=== PATIENT | male | born 1960 | race African-American/Black ===

== ENCOUNTER 2017-02-24 20:46 | Emergency (ER) | payer OTHER ==
[~2017-02-24] VITALS: Ht 185.4 cm; Wt 93.4 kg
[2017-02-24] MEDS ORDERED: ONDA4TAB10 SL (22:03)
[2017-02-24] MEDS ORDERED: MORP15TA PO (22:03)
--- NOTE | 2017-02-24 22:03 | PHYS DOC ---
Adult General Chief Complaint Chief Complaint: BLOOD IN URINE HPI HPI 48-year-old male presenting to the emergency department today after having left groin pain after lifting a heavy object. He reports lifting commonly for his job and normally doesn't have problems however a few days ago he was lifting something heavy when he suddenly had groin pain. He denies there being much swelling in his groin. Over the past 2 days he has been tolerating the pain, however tonight he began having hematuria and so he presents. His pain is sharp moderate nonradiating and without alleviating factors. It is associated with hematuria. Review of systems is negative for chest pain shortness of breath nausea vomiting abdominal pain fevers chills. All other review of systems is negative unless otherwise noted in history of present illness. Review of Systems Review of Systems SEE ABOVE. Current Medications Current Medications Current Medications Medications (Trade) Dose Ordered Sig/Rayo Start Time Stop Time Status Last Admin Dose Admin Fentanyl Citrate (Fentanyl 2ml Vial) 25 mcg 1X ONCE 02/24/17 22:30 02/24/17 22:31 DC 02/24/17 22:37 25 MCG Ondansetron HCl (Zofran) 4 mg 1X ONCE 02/24/17 22:30 02/24/17 22:31 DC 02/24/17 22:37 4 MG Sodium Chloride 1,000 ml @ 1,000 mls/hr Q1H 02/24/17 22:30 02/24/17 23:29 DC 02/24/17 22:38 1,000 MLS/HR Allergies Allergies Allergies Coded Allergies Type Severity Reaction Last Updated Verified No Known Drug Allergies 02/24/17 No Physical Exam Physical Exam Constitutional: Well developed, well nourished, no acute distress, non-toxic appearance. HENT: Normocephalic, atraumatic, bilateral external ears normal, oropharynx moist, no oral exudates, nose normal. [] Eyes: PERRLA, EOMI, conjunctiva normal, no discharge. Neck: Normal range of motion, no tenderness, supple, no stridor. [] Cardiovascular:Heart rate regular rhythm, no murmur Lungs & Thorax: Bilateral breath sounds clear to auscultation [] Abdomen: Soft nontender abdomen without rebound tenderness or guarding present. Negative McBurneys point. Negative Campbell sign. No ecchymosis present. exam: Normal penis and testicles. There is no erythema of the scrotal sac. Cremasteric reflex is intact. There is mild swelling with Valsalva maneuver over the left groin in the inguinal canal. Skin: Warm, dry, no erythema, no rash. [] Back: No tenderness, no CVA tenderness. Extremities: No tenderness, no cyanosis, no clubbing, ROM intact, no edema. [] Neurologic: Alert and oriented X 3, normal motor function, normal sensory function, no focal deficits noted. Psychologic: Affect normal, judgement normal, mood normal. [] Current Patient Data Vital Signs Vital Signs Date Time Temp Pulse Resp B/P (MAP) Pulse Ox O2 Delivery O2 Flow Rate FiO2 02/24/17 23:20 Room Air 02/24/17 22:46 97.9 86 17 133/84 (100) 98 97.9 Lab Values Laboratory Tests Test 02/24/17 21:30 02/24/17 22:20 Urine Collection Type Unknown Urine Color Emily Urine Clarity Cloudy Urine pH 6.0 Urine Specific [place] 1.020 Urine Protein 100 mg/dL (NEG-TRACE) Urine Glucose (UA) Negative mg/dL (NEG) Urine Ketones (Stick) Negative mg/dL (NEG) Urine Blood Large (NEG) Urine Nitrite Positive (NEG) Urine Bilirubin Negative (NEG) Urine Urobilinogen Dipstick 1.0 mg/dL (0.2 mg/dL) Urine Leukocyte Esterase Large (NEG) Urine RBC Tntc /HPF (0-2) Urine WBC Tntc /HPF (0-4) Urine Squamous Epithelial Cells Occ /LPF Urine Bacteria Many /HPF (0-FEW) White Blood Count 14.1 x10^3/uL (4.0-11.0) H Red Blood Count 4.45 x10^6/uL (4.30-5.70) Hemoglobin 12.8 g/dL (13.0-17.5) L Hematocrit 37.5 % (39.0-53.0) L Mean Corpuscular Volume 84 fL (79-100) Mean Corpuscular Hemoglobin 29 pg (25-35) Mean Corpuscular Hemoglobin Concent 34 g/dL (31-37) Red Cell Distribution Width 13.9 % (11.5-14.5) Platelet Count 197 x10^3/uL (140-400) Neutrophils (%) (Auto) 81 % (31-73) H Lymphocytes (%) (Auto) 14 % (24-48) L Monocytes (%) (Auto) 4 % (0-9) Eosinophils (%) (Auto) 1 % (0-3) Basophils (%) (Auto) 0 % (0-3) Neutrophils # (Auto) 11.4 x10^3uL (1.8-7.7) H Lymphocytes # (Auto) 2.0 x10^3/uL (1.0-4.8) Monocytes # (Auto) 0.6 x10^3/uL (0.0-1.1) Eosinophils # (Auto) 0.1 x10^3/uL (0.0-0.7) Basophils # (Auto) 0.0 x10^3/uL (0.0-0.2) Sodium Level 141 mmol/L (136-145) Potassium Level 4.3 mmol/L (3.5-5.1) Chloride Level 103 mmol/L (98-107) Carbon Dioxide Level 29 mmol/L (21-32) Anion Gap 9 (6-14) Blood Urea Nitrogen 15 mg/dL (8-26) Creatinine 1.1 mg/dL (0.7-1.3) Estimated GFR (Cockcroft-Gault) 83.2 BUN/Creatinine Ratio 14 (6-20) Glucose Level 87 mg/dL (70-99) Calcium Level 9.1 mg/dL (8.5-10.1) Total Bilirubin 0.8 mg/dL (0.2-1.0) Aspartate Amino Transferase (AST) 37 U/L (15-37) Alanine Aminotransferase (ALT) 40 U/L (16-63) Alkaline Phosphatase 54 U/L (46-116) Total Protein 7.1 g/dL (6.4-8.2) Albumin 3.5 g/dL (3.4-5.0) Albumin/Globulin Ratio 1.0 (1.0-1.7) Lipase 112 U/L (73-393) Laboratory Tests 02/24/17 22:20 Laboratory Tests 02/24/17 22:20 EKG EKG [] Radiology/Procedures Radiology/Procedures [] Course & Med Decision Making Course & Med Decision Making Pertinent Labs and Imaging studies reviewed. (See chart for details) [] 56-year-old male presenting to the emergency department today with left groin pain after lifting heavy object. Vital signs. Pertinent physical exam findings showed that the patient had mild swelling with Valsalva maneuver suggestive of hernia in the left inguinal canal. Blood work obtained. CT the abdomen obtained. Urinalysis strongly suggestive of urinary tract infection. CT abdomen pelvis shows no evidence of hernia. The patient was given fluids along with pain and nausea medications. On reexamination the patient improved significant. The patient was then discharged home in stable condition to follow up with their primary care physician over the next 2-3 days. They were to return if their symptoms worsened or if they were concerned for any reason. Face -to-face discharge instructions and return precautions were given. Patient's questions were answered to their satisfaction. Patient is comfortable plan. Dragon Disclaimer Dragon Disclaimer This electronic medical record was generated, in whole or in part, using a voice recognition dictation system. Departure Departure Impression: Primary Impression: Inguinal hernia Additional Impression: UTI (urinary tract infection) Disposition: 01 HOME, SELF-CARE Condition: STABLE Referrals: FLACO SHAH MD (PCP) MULU GILLESPIE MD Patient Instructions: Hernia Additional Instructions: Thank you for allowing us to participate in your care today. Followup with your primary care physician in 3 days if your symptoms do not improve. If you do not have a primary care provider you can ask for a list of our primary care providers. Return to the emergency department you have any new or concerning findings. This should be evaluated by the primary care physician and any necessary consulting services for continued management within a few days after discharge. Return to emergency room if you have any new or concerning symptoms including but not limited to fever, chills, nausea, vomiting, intractable pain, any new rashes, chest pain, shortness of air, uncontrolled bleeding, difficulty breathing, and/or vision loss. You may have been prescribed medication that can change in your level of thinking and ability to operate machinery. These medications include hydrocodone and Ativan. Also, Benadryl has been known to do this as well. Be sure to check with your pharmacist and ask if the medications you've prescribed can affect your level of consciousness. I recommend not operating heavy machinery or driving while on medication such as these. Scripts Sulfamethoxazole/Trimethoprim (BACTRIM DS TABLET) 1 Each Tablet 1 TAB PO BID, #14 TAB Prov: BREANNA SAENZ MD 02/24/17 Ondansetron (ZOFRAN ODT) 4 Mg Tab.rapdis 1 TAB SL PRN Q8HRS Y for NAUSEA, #6 TAB Prov: BREANNA SAENZ MD 02/24/17 Morphine Sulfate (MORPHINE SULFATE) 15 Mg Tablet 1 TAB PO PRN Q6-8HRS Y for SEVERE PAIN, #8 TAB Prov: BREANNA SAENZ MD 02/24/17 Problem Qualifiers BREANNA SAENZ MD February 24, 2017 22:03
[2017-02-24 22:22] LABS: BILIRUBIN,URINE NEGATIVE (NEG); GLUCOSE,URINE NEGATIVE (NEG); NITRITE,URINE POSITIVE (NEG); PROTEIN,URINE 100 mg/dL (NEG-TRACE)
[2017-02-24 22:25] LABS: BASO % 0 % (0-3); EOS % 1 % (0-3); HEMATOCRIT 37.5 % (39.0-53.0); HEMOGLOBIN 12.8 g/dL (13.0-17.5); LYMPH % 14 % (24-48); MEAN CORPUSCULAR HEMOGLOBIN 29 pg (25-35); MEAN CORPUSCULAR HGB CONC 34 g/dL (31-37); MEAN CORPUSCULAR VOLUME 84 fL (79-100); MONO % 4 % (0-9); NEUT % 81 % (31-73); PLATELET COUNT 197 x10^3/uL (140-400); RED BLOOD COUNT 4.45 x10^6/uL (4.30-5.70); RED CELL DISTRIBUTION WIDTH 13.9 % (11.5-14.5); WHITE BLOOD COUNT 14.1 x10^3/uL (4.0-11.0)
[2017-02-24 22:30] LABS: BACTERIA,URINE MANY /HPF (0-FEW); RBC,URINE TNTC /HPF (0-2); SQUAMOUS EPITHELIAL CELL,UR OCC /LPF; WBC,URINE TNTC /HPF (0-4)
[2017-02-24] MEDS ORDERED: ONDANSETRON PF 4 MG/2 ML VIAL. IV ONE (22:30)
[2017-02-24] MEDS ORDERED: IV NORMAL SALINE 1000ML BAG 1,000 ML IV SCH (22:30)
[2017-02-24] MEDS ORDERED: fentaNYL PF VIAL 100 MCG/2 ML VIAL IV ONE (22:30)
[2017-02-24] MEDS ORDERED: SULF1TAB24 PO (22:35)
[2017-02-24 22:39] LABS: CALCIUM 9.1 mg/dL (8.5-10.1); CREATININE 1.1 mg/dL (0.7-1.3); GFR 83.2; POTASSIUM 4.3 mmol/L (3.5-5.1)
[2017-02-24 22:44] LABS: ALBUMIN 3.5 g/dL (3.4-5.0); TOTAL BILIRUBIN 0.8 mg/dL (0.2-1.0); TOTAL PROTEIN 7.1 g/dL (6.4-8.2)
[2017-02-24 22:46] VITALS: BP 133/84
--- NOTE | 2017-02-24 23:16 | RAD ---
INDICATION: Abdomen pain. COMPARISON: None TECHNIQUE: Axial CT images obtained through the abdomen and pelvis. Intravenous contrast was not utilized. One or more of the following individualized dose reduction techniques were utilized for this examination: 1. Automated exposure control; 2. Adjustment of the mA and/or kV according to patient size; 3. Use of iterative reconstruction technique. FINDINGS: Abdominal aorta not aneurysmal. Mild atelectasis lung bases. No intrahepatic bile duct dilation. No peripancreatic edema. Spleen unremarkable. No hydronephrosis. No definite evidence of small bowel obstruction. Bladder has some edema adjacent to it. Wall mildly prominent. Colonic diverticulosis. Small fat containing umbilical hernia. No periappendiceal inflammation. Degenerative changes of the spine. IMPRESSION: No hydronephrosis or evidence of bowel obstruction. There is mild prominence of the wall of the urinary bladder with some apparent infiltration of fat adjacent to urinary bladder and seminal vesicles. Could be secondary to inflammation either to the bladder or seminal vesicles from cystitis or inflammation of seminal vesicles. Follow-up could be obtained to ensure that the apparent bladder wall thickening resolves to ensure that there is not a neoplastic cause. Electronically signed by: Rah Abernathy (February 24, 2017 23:15:18)
== END 2017-02-25 00:13 | disposition home or self-care (01) ==
LOC: ER 20:46
DX: K40.90 Unilateral inguinal hernia, without obstruction or gangrene, not specified as recurrent (principal); N39.0 Urinary tract infection, site not specified
CPT/HCPCS: 36415; 74176; 80053; 81001; 83690; 85027; 96361; 96374; 96375; 99285; J2405; J3010; J7030

== ENCOUNTER 2020-12-14 17:17 | Emergency (ER) | payer OTHER ==
[~2020-12-14] VITALS: Ht 185.4 cm; Wt 93.1 kg
[~2020-12-14 17:17] MED LIST: MORP15TA PO; ONDA4TAB10 SL; SULF1TAB24 PO
[2020-12-14] MEDS ORDERED: KETOROLAC 15 MG/ML VIAL. IVP ONE (18:30)
[2020-12-14] MEDS ORDERED: ONDANSETRON PF 4 MG/2 ML VIAL. IVP ONE (18:30)
[2020-12-14] MEDS ORDERED: IV NORMAL SALINE 1000ML BAG 1,000 ML IV ONE (18:30)
[2020-12-14] MEDS ORDERED: FAMOTIDINE 20 MG/2 ML VIAL IVP ONE (18:30)
--- NOTE | 2020-12-14 18:32 | PHYS DOC ---
Past Medical History Past Medical History: Hypertension Additional Past Surgical Histo: dental Smoking Status: Former Smoker Alcohol Use: None Drug Use: None General Adult EDM: Chief Complaint: ABDOMINAL PAIN HPI: HPI: Patient is a 60-year-old male who presents to emergency department with complaints of abdominal pain. He states the pain began gradually 4 days ago and is located in his right lower quadrant and radiates to his groin. He describes the pain as sharp and intermittent. He states that the pain comes on and will go away on its own. He denies any aggravating or alleviating factors. He has taken Tylenol for the pain with no relief he denies any fever, chills, nausea, vomiting, diarrhea, hematuria, or dysuria. He denies any previous abdominal surgeries or any similar pain in the past. Review of Systems: Review of Systems: Constitutional: Denies fever or chills Eyes: Denies redness or eye pain HENT: Denies nasal congestion or sore throat Respiratory: Denies cough or shortness of breath Cardiovascular: Denies chest pain or palpitations GI: Admits right lower quadrant pain; denies nausea or vomiting : Denies dysuria or hematuria Musculoskeletal: Denies back pain or joint pain Integument: Denies rash or skin lesions Neurologic: Denies headache, focal weakness or sensory changes Complete systems were reviewed and found to be within normal limits, except as documented in this note. Heart Score: Risk Factors: Scratch Current Medications: Current Medications Medications (Trade) Dose Ordered Sig/Rayo Start Time Stop Time Status Last Admin Dose Admin Famotidine (Pepcid Vial) 20 mg 1X ONCE 12/14/20 18:30 12/14/20 18:31 Ketorolac Tromethamine (Toradol 15mg Vial) 15 mg 1X ONCE 12/14/20 18:30 12/14/20 18:31 Ondansetron HCl (Zofran) 4 mg 1X ONCE 12/14/20 18:30 12/14/20 18:31 Sodium Chloride 1,000 ml @ 1,000 mls/hr 1X ONCE 12/14/20 18:30 12/14/20 19:29 Allergies: Allergies: Allergies Coded Allergies Type Severity Reaction Last Updated Verified No Known Drug Allergies 02/24/17 No Physical Exam: PE: Constitutional: Well developed, well nourished, no acute distress, non-toxic appearance HENT: Normocephalic, atraumatic Eyes: Conjunctiva normal, no discharge Neck: Normal range of motion, no tenderness, supple Lungs & Thorax: No respiratory distress, equal chest rise and fall Abdomen: Soft, tenderness to palpation in right lower quadrant. No guarding, no rebound tenderness Skin: Warm, dry, no erythema, no rash Back: No tenderness, no CVA tenderness Extremities: No tenderness, ROM intact, no edema Neurologic: Alert and oriented X 3, normal motor function, normal sensory function, no focal deficits noted Psychologic: Affect normal, judgment normal Current Patient Data: Vital Signs: Vital Signs Date Time Temp Pulse Resp B/P (MAP) Pulse Ox O2 Delivery O2 Flow Rate FiO2 12/14/20 17:49 98.6 80 26 151/79 (103) 97 Room Air 98.6 EKG: EKG: [] Radiology/Procedures: Radiology/Procedures: PROCEDURE: CT ABDOMEN PELVIS WO CONTRAST Exam: CT of abdomen and pelvis without contrast INDICATION: Right-sided pain, evaluate for ureteral calculus TECHNIQUE: Sequential axial images through the abdomen and pelvis obtained without IV contrast. Sagittal and coronal reformatted images were reconstructed from the axial data and reviewed. Comparisons: 02/24/2017 FINDINGS: Heart size is normal. No pericardial strandy opacities at dependent portion l ungs likely representing atelectasis. No pleural effusion Evaluation of the solid organs is limited secondary to noncontrast technique. Liver, spleen, pancreas, gallbladder and adrenals are unremarkable. No perinephric inflammation or hydronephrosis. No renal or ureteral calculi are identified. Bladder is partially distended and appears thin-walled. Prostate is not enlarged. There is fat stranding and edema surrounding the sigmoid colon with wall thickening and diverticulosis. Remainder large and small bowel are unremarkable. Appendix is normal. No free intra-abdominal air or fluid. No obstruction. Abdominal aorta has a normal course and caliber. No enlarged intra-abdominal lymph nodes are identified. No suspicious osseous lesions or acute fractures. IMPRESSION: Stranding and edema surrounding the sigmoid colon in an area of diverticulosis favored represent diverticulitis. No definite evidence for perforation or adjacent abscess on noncontrast exam. Exposure: One or more of the following in the visualized dose reduction techniques were utilized for this examination: 1. Automated exposure control 2. Adjustment of the MA and/or KV according to patient size 3. Use of iterative of reconstructive technique Electronically signed by: Natalya Alejandro MD (12/14/2020 7:23 PM) [facility] Course & Med Decision Making: Course & Med Decision Making Patient is a 60-year-old male presenting to the emergency department with right lower quadrant abdominal pain. He was sent here from urgent care due to concerns of appendicitis, but due to the intermittent nature of the pain and duration of symptoms plan to work him up for nephrolithiasis. Pertinent Labs and Imaging studies reviewed. (See chart for details) Labs obtained and posted to chart. CT abd/pelvis with findings concerning for sigmoid diverticulitis. No free air or signs of abscess noted. Empiric anti biotics given. IVF hydration also provided as well as symptomatic treatment. Patient stable for discharge with outpatient follow-up with PCP/GI. GI referral provided. Discussed findings and plan with patient and spouse, who acknowledge understanding and agreement. Dragon Disclaimer: Dragon Disclaimer: This electronic medical record was generated, in whole or in part, using a voice recognition dictation system. Departure Departure Impression: Primary Impression: Diverticulitis Disposition: DC HOME SELF CARE/HOMELESS Condition: STABLE Referrals: Reginaldo SHAH MD (PCP) KALYAN LEWIS MD Patient Instructions: Diverticulitis Additional Instructions: Increase fluid hydration. Use over the counter Tylenol and/or Ibuprofen for pain or discomfort. Scripts Metronidazole (FLAGYL) 500 Mg Tablet 500 MG PO TID for 7 Days, #21 TAB Prov: CIRO ZULUAGA DO 12/14/20 Ciprofloxacin Hcl (CIPRO) 500 Mg Tablet 1 TAB PO BID for 7 Days, #14 TAB 0 Refills Prov: CIRO ZULUAGA DO 12/14/20 Tramadol Hcl (TRAMADOL HCL) 50 Mg Tablet 50 MG PO Q6HRS PRN for PAIN, #14 TAB Prov: CIRO ZULUAGA DO 12/14/20 Ondansetron (ONDANSETRON ODT) 4 Mg Tab.rapdis 1 TAB PO PRN Q6-8HRS PRN for NAUSEA, #16 TAB Prov: CIRO ZULUAGA DO 12/14/20 CIRO ZULUAGA DO Dec 14, 2020 18:32
[2020-12-14 18:34] LABS: BASO % 0 % (0-3); EOS # 0.1 x10^3/uL (0.0-0.7); EOS % 1 % (0-3); HEMATOCRIT 38.9 % (39.0-53.0); HEMOGLOBIN 12.9 g/dL (13.0-17.5); LYMPH # 2.1 x10^3/uL (1.0-4.8); LYMPH % 26 % (24-48); MEAN CORPUSCULAR HEMOGLOBIN 28 pg (25-35); MEAN CORPUSCULAR HGB CONC 33 g/dL (31-37); MEAN CORPUSCULAR VOLUME 85 fL (79-100); MONO # 0.5 x10^3/uL (0.0-1.1); MONO % 7 % (0-9); NEUT # 5.4 x10^3/uL (1.8-7.7); NEUT % 66 % (31-73); PLATELET COUNT 162 x10^3/uL (140-400); RED CELL DISTRIBUTION WIDTH 13.8 % (11.5-14.5); WHITE BLOOD COUNT 8.1 x10^3/uL (4.0-11.0)
[2020-12-14 18:39] LABS: BILIRUBIN,URINE NEGATIVE (NEG); CLARITY,URINE CLEAR; COLOR,URINE YELLOW; NITRITE,URINE NEGATIVE (NEG); PH,URINE 6.5 (<5.0-8.0); PROTEIN,URINE NEGATIVE (NEG-TRACE)
[2020-12-14 18:45] LABS: CALCIUM 8.7 mg/dL (8.5-10.1); CREATININE 1.2 mg/dL (0.7-1.3); GFR 74.2; POTASSIUM 3.8 mmol/L (3.5-5.1)
[2020-12-14 18:46] LABS: BACTERIA,URINE 0 /HPF (0-FEW); RBC,URINE OCC /HPF (0-2); WBC,URINE OCC /HPF (0-4)
[2020-12-14 18:59] LABS: ALBUMIN 3.7 g/dL (3.4-5.0); MAGNESIUM 2.2 mg/dL (1.8-2.4); TOTAL BILIRUBIN 1.6 mg/dL (0.2-1.0); TOTAL PROTEIN 7.4 g/dL (6.4-8.2)
--- NOTE | 2020-12-14 19:25 | RAD ---
Exam: CT of abdomen and pelvis without contrast INDICATION: Right-sided pain, evaluate for ureteral calculus TECHNIQUE: Sequential axial images through the abdomen and pelvis obtained without IV contrast. Sagit lloyd and coronal reformatted images were reconstructed from the axial data and reviewed. Comparisons: 02/24/2017 FINDINGS: Heart size is normal. No pericardial strandy opacities at dependent portion lungs likely representing atelectasis. No pleural effusion Evaluation of the solid organs is limited secondary to noncontrast technique. Liver, spleen, pancreas, gallbladder and adrenals are unremarkable. No perinephric inflammation or hydronephrosis. No renal or ureteral calculi are identified. Bladder is partially distended and appears thin-walled. Prostate is not enlarged. There is fat stranding and edema surrounding the sigmoid colon with wall thickening and diverticulosi s. Remainder large and small bowel are unremarkable. Appendix is normal. No free intra-abdominal air or fluid. No obstruction. Abdominal aorta has a normal course and caliber. No enlarged intra-abdominal lymph nodes are identified. No suspicious osseous lesions or acute fractures. IMPRESSION: Stranding and edema surrounding the sigmoid colon in an area of diverticulosis favored represent dive rticulitis. No definite evidence for perforation or adjacent abscess on noncontrast exam. Exposure: One or more of the following in the visualized dose reduction techniques were utilized for this examination: 1. Automated exposure control 2. Adjustment of the MA and/or KV according to patient size 3. Use of iterative of reconstructive technique Electronically signed by: Natalya Alejandro MD (12/14/2020 7:23 PM) [facility]
[2020-12-14] MEDS ORDERED: metroNIDAZOLE 500 MG TABLET PO ONE (20:00)
[2020-12-14] MEDS ORDERED: CIPROFLOXACIN HCL 250 MG TABLET. PO ONE (20:00)
[2020-12-14] MEDS ORDERED: ONDA4TAB12 PO (20:10)
[2020-12-14] MEDS ORDERED: METR500T PO (20:10)
[2020-12-14] MEDS ORDERED: CIPR500T94 PO (20:10)
[2020-12-14] MEDS ORDERED: TRAM50TA PO (20:10)
[2020-12-14] MEDS ORDERED: MORPHINE SULFATE 2 MG/ML VIAL. IV ONE (20:30)
[2020-12-14 20:35] VITALS: BP 135/84
== END 2020-12-14 20:53 | disposition home or self-care (01) ==
LOC: ER 17:17
DX: K57.32 Diverticulitis of large intestine without perforation or abscess without bleeding (principal); R10.31 Right lower quadrant pain; I10 Essential (primary) hypertension; Z87.891 Personal history of nicotine dependence; Z98.890 Other specified postprocedural states
CPT/HCPCS: 36415; 74176; 80053; 81001; 83605; 83690; 83735; 85025; 96361; 96374; 96375; 99285; J1885; J2405; J3490; J7030